=== PATIENT | male | born 1965 | race Caucasian/White ===

== ENCOUNTER 2019-10-18 14:35 | Outpatient (CLI) | payer OTHER, SELFPAY ==
[2019-10-18 14:49] LABS: Basophils Absolute Auto 0.09 K/mm3 (0.00-0.10); Basophils Percent Auto 0.8 % (0.0-1.0); Eosinophils Absolute Auto 0.61 K/mm3 (0.02-0.50); Eosinophils Percent Auto 5.3 % (1.0-6.0); Hematocrit 45.7 % (40.0-54.0); Hemoglobin 15.1 g/dL (14.0-18.0); Immature Granulocyte Absolute 0.05 K/mm3 (0.00-0.00); Immature Granulocyte Percent A 0.4 % (0.0-0.0); Lymphocytes Absolute Auto 3.61 K/mm3 (1.10-4.50); Lymphocytes Percent Auto 31.2 % (18.0-42.0); Mean Corpuscular Hemoglobin 29.1 pg (27.0-31.0); Mean Corpuscular Volume 88.1 fL (78.0-102.0); Mean Platelet Volume 9.2 fl (8.7-11.0); Monocytes Absolute Auto 0.72 K/mm3 (0.10-0.90); Monocytes Percent Auto 6.2 % (2.0-11.0); Neutrophils Absolute Auto 6.5 K/mm3 (1.7-7.2); Neutrophils Percent Auto 56.1 % (50.0-70.0); Platelet Count Result 315 K/mm3 (150-420); Red Blood Count 5.19 M/mm3 (4.70-6.10); Red Cell Distribution Width 12.6 % (11.6-14.4); White Blood Count 11.6 K/mm3 (4.8-10.8)
[2019-10-18 15:02] LABS: Hemoglobin A1C 8.2 % (<5.7)
[2019-10-18 15:25] LABS: Alanine Aminotransferase 20 U/L (16-63); Alkaline Phosphatase 73 U/L (46-116); Anion Gap 10 mmol/L (8-16); Aspartate Amino Transferase 13 U/L (15-37); Bilirubin,Total 0.6 mg/dL (0.00-1.00); Blood Urea Nitrogen 14 mg/dL (7-18); Calcium 9.5 mg/dL (8.5-10.1); Carbon Dioxide 26 mmol/L (21-32); Chloride 102 mmol/L (98-108); Cholesterol 128 mg/dL (0-200); Estimated Glomerular Filt Rate > 60; Glucose 153 mg/dL (70-99); HDL Direct 33 mg/dL (40-60); LDL Cholesterol Calculated 52 mg/dL (<130); Osmolality Calculated 289 mOsm/kg (285-295); Potassium 4.8 mmol/L (3.5-5.1); Sodium 138 mmol/L (136-145); Total Protein 7.2 g/dL (6.4-8.2); Triglycerides 213 mg/dL (0-150)
[2019-10-18 15:46] LABS: Thyroid Stimulating Hormone Reflex 2.17 u/IU/mL (0.36-3.74)
== END 2019-10-18 14:36 | disposition home or self-care (01) ==
LOC: CHSLAB 14:40
PROVIDERS: PCP Family Medicine; Visit Provider Family Medicine
DX: E11.9 Type 2 diabetes mellitus without complications (principal)
CPT/HCPCS: 36415; 80053; 80061; 83036; 84443; 85025

== ENCOUNTER 2019-12-07 06:49 | Outpatient (NON) | payer OTHER, SELFPAY ==
[2019-12-07 21:17] LABS: SARS-CoV-2 RNA PCR Positive
== END 2019-12-07 06:50 ==
PROVIDERS: PCP Family Medicine; Visit Provider Family Medicine
DX: U07.1 COVID-19 (principal)
CPT/HCPCS: 87635; C9803; U0003

== ENCOUNTER 2019-12-16 13:50 | Outpatient (CLI) | payer OTHER, SELFPAY ==
[2019-12-17 13:14] LABS: SARS-CoV-2 RNA PCR Positive
== END 2019-12-16 13:51 | disposition home or self-care (01) ==
LOC: CHSLAB 13:53
PROVIDERS: PCP Family Medicine; Visit Provider Family Medicine
DX: U07.1 COVID-19 (principal)
CPT/HCPCS: 87635; C9803; U0003

== ENCOUNTER 2019-12-30 09:07 | Outpatient (CLI) | payer OTHER, SELFPAY ==
[2019-12-31 14:10] LABS: SARS-CoV-2 RNA PCR Negative
== END 2019-12-30 09:08 | disposition home or self-care (01) ==
PROVIDERS: PCP Nurse Practitioner Family; Visit Provider Nurse Practitioner Family
DX: Z20.828 Contact with and (suspected) exposure to other viral communicable diseases (principal)
CPT/HCPCS: 87635; C9803; U0003

== ENCOUNTER 2020-07-23 13:51 | Outpatient (CLI) | payer OTHER, SELFPAY ==
[2020-07-23 14:10] LABS: Hematocrit 48.3 % (40.0-54.0); Hemoglobin 16.4 g/dL (14.0-18.0); Mean Corpuscular Hemoglobin 29.3 pg (27.0-31.0); Mean Corpuscular Volume 86.3 fL (78.0-102.0); Mean Platelet Volume 9.2 fl (8.7-11.0); Platelet Count Result 344 K/mm3 (150-420); Red Cell Distribution Width 12.7 % (11.6-14.4); White Blood Count 15.3 K/mm3 (4.8-10.8)
[2020-07-23 14:25] LABS: Hemoglobin A1C 8.8 % (<5.7)
[2020-07-23 15:10] LABS: Erythrocyte Sedimentation Rate 3 mm/hr (0-20)
[2020-07-23 15:17] LABS: Alanine Aminotransferase 23 U/L (16-63); Albumin Level 4.3 g/dL (3.4-5.0); Alkaline Phosphatase 80 U/L (46-116); Anion Gap 13 mmol/L (8-16); Aspartate Amino Transferase 10 U/L (15-37); Band Neutrophils Percent 0 % (0-6); Basophils Absolute Manual 0.15 K/mm3 (0-0.1); Basophils Percent Manual 1 % (0-1); Bilirubin,Total 0.8 mg/dL (0.00-1.00); Blood Urea Nitrogen 21 mg/dL (7-18); Calcium 9.9 mg/dL (8.5-10.1); Carbon Dioxide 23 mmol/L (21-32); Chloride 99 mmol/L (98-108); Cholesterol 133 mg/dL (0-200); Eosinophils Absolute Manual 0.91 K/mm3 (0.02-0.5); Eosinophils Percent Manual 6 % (1-6); Estimated Glomerular Filt Rate 51; Ferritin 333 ng/mL (26-388); Glucose 142 mg/dL (70-99); HDL Direct 29 mg/dL (40-60); Iron 57 ug/dL (65-175); LDL Cholesterol Calculated 60 mg/dL (<130); Lymphocytes Absolute Manual 4.74 K/mm3 (1.1-4.5); Lymphocytes Percent Manual 31 % (18-44); Monocytes Absolute Manual 1.22 K/mm3 (0.1-0.90); Monocytes Percent Manual 8 % (3-9); Neutrophils Absolute Manual 8.26 K/mm3 (1.3-6.7); Neutrophils Percent Manual 54 % (46-73); Osmolality Calculated 285 mOsm/kg (285-295); Percent Iron Saturation 18 % (12-57); Platelet Estimate Adequate (Adequate); Potassium 5.2 mmol/L (3.5-5.1); Sodium 135 mmol/L (136-145); Total Cells Counted 100; Total Protein 7.3 g/dL (6.4-8.2); Triglycerides 222 mg/dL (0-150); Vitamin B12 543 pg/mL (193-986)
[2020-07-23 15:18] LABS: CRP < 0.5 mg/dL (0.0-0.9)
[2020-07-30 12:36] LABS: Vitamin D 25 Hydroxy 9 ng/mL (30-100)
== END 2020-07-23 13:52 | disposition home or self-care (01) ==
LOC: CHSLAB 13:55
PROVIDERS: PCP Family Medicine; Visit Provider Family Medicine
DX: E11.9 Type 2 diabetes mellitus without complications (principal); R53.83 Other fatigue; E55.9 Vitamin D deficiency, unspecified
CPT/HCPCS: 36415; 80053; 80061; 82306; 82607; 82728; 82746; 83036; 83540; 83550; 84443; 85025; 85652; 86140

== ENCOUNTER 2020-08-20 14:18 | Outpatient (CLI) | payer OTHER, SELFPAY ==
--- NOTE | 2020-08-20 14:22 | ECG_ITS ---
Measurements Intervals [place] Rate: 124 P: 76 NH: 141 QRS: 77 QRSD: 91 T: 78 QT: 291 QTc: 419 Interpretive Statements SINUS TACHYCARDIA ABNORMAL ECG Electronically Signed On 08-20-2020 14:43:06 CDT by Bruno Joseph D.O.
== END 2020-08-20 14:19 | disposition home or self-care (01) ==
PROVIDERS: PCP Family Medicine; Visit Provider Family Medicine
DX: R07.9 Chest pain, unspecified (principal); R53.83 Other fatigue
CPT/HCPCS: 93005

== ENCOUNTER 2020-08-20 14:40 | Outpatient (RCR) | payer OTHER, SELFPAY ==
--- NOTE | 2020-08-20 15:54 | PTOPEVAL ---
Thank you for referring Bijan Ibrahim to [facility].? The patient is scheduled to be seen for therapy? ____x/week for ___ weeks. Please review, sign, date and return this plan of care LAVERNE. I agree with and certify that the following plan of care is medically necessary. Referring Physician Date Admitting Provider: Attending Provider: Renny Melissa MD Referring Provider: *PT Outpatient Evaluation Start: 08/20/20 14:49 Freq: Status: Active Protocol: Document 08/20/20 14:49 ACR (Rec: 08/20/20 15:53 ACR [email or web address]) Therapy Assessment Status Assessment Status Assessment Status Evaluation Evaluation Information Problem Diagnosis R hip pain Onset 08/05/20 Subjective Information Patient states that he has Query Text:As Reported By Patient/ been having pain in his hip Family for about 6 years because he started to become more sedentary. 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 The patient states that at times when he gets up, the femur feels that it is breaking. The patient states that walking and standing are the most difficult. Patient states that getting in and out of a chair and a car are a bit difficult . Patient states that is 2 packs of cigarettes a day and is sedentary throughout the day. Prior Level of Function Activity Level (Last 3 Months) Occupation unemployed Hand [employer]ance Right Activity of Daily Living Ability Independent Indoor/Home Mobility Independent Community Mobility Independent Stairs Ability Independent Functional Cognition (Planning, Shopping Independent , Taking Medications) Cooking Yes Cleaning Yes Laundry Yes Shopping Yes Driving Yes Pain Assessment Timing of Pain Assessment Timing of Pain Assessment Assessment Pain Scale Pain Scale Used Numeric (1 - 10) Self Report Pain Assessment Right Hip(s) Reported Pa
--- NOTE | 2020-08-20 16:40 | PTOPEVAL ---
Thank you for referring Bijan Ibrahim to [facility].? The patient is scheduled to be seen for therapy? ____x/week for ___ weeks. Please review, sign, date and return this plan of care LAVERNE. I agree with and certify that the following plan of care is medically necessary. Referring Physician Date Admitting Provider: Attending Provider: Renny Melissa MD Referring Provider: *PT Outpatient Evaluation Start: 08/20/20 14:49 Freq: Status: Active Protocol: Document 08/20/20 14:49 ACR (Rec: 08/20/20 15:53 ACR [email or web address]) Therapy Assessment Status Assessment Status Assessment Status Evaluation Evaluation Information Problem Diagnosis R hip pain Onset 08/05/20 Subjective Information Patient states that he has Query Text:As Reported By Patient/ been having pain in his hip Family for about 6 years because he started to become more sedentary. 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 The patient states that at times when he gets up, the femur feels that it is breaking. The patient states that walking and standing are the most difficult. Patient states that getting in and out of a chair and a car are a bit difficult . Patient states that is 2 packs of cigarettes a day and is sedentary throughout the day. Prior Level of Function Activity Level (Last 3 Months) Occupation unemployed Hand Dominance Right Activity of Daily Living Ability Independent Indoor/Home Mobility Independent Community Mobility Independent Stairs Ability Independent Functional Cognition (Planning, Shopping Independent , Taking Medications) Cooking Yes Cleaning Yes Laundry Yes Shopping Yes Driving Yes Pain Assessment Timing of Pain Assessment Timing of Pain Assessment Assessment Pain Scale Pain Scale Used Numeric (1 - 10) Self Report Pain Assessment Right Hip(s) Reported Pa
--- NOTE | 2020-10-15 15:01 | PTOPEVAL ---
Thank you for referring Bijan Ibrahim to [facility].? The patient is scheduled to be seen for therapy? ____x/week for ___ weeks. Please review, sign, date and return this plan of care LAVERNE. I agree with and certify that the following plan of care is medically necessary. Referring Physician Date Admitting Provider: Attending Provider: Renny Melissa MD Referring Provider: *PT Outpatient Evaluation Start: 08/20/20 14:49 Freq: Status: Active Protocol: Document 10/15/20 13:57 ACR (Rec: 10/15/20 15:00 ACR [email or web address]) Therapy Assessment Status Assessment Status Assessment Status Progress Evaluation Information Problem Diagnosis R hip pain Onset 08/05/20 Subjective Information Patient states since beginning Query Text:As Reported By Patient/ therapy he feels that it is Family really helping, but it is starting to bother him again. Patient states that getting out of a chair and getting out of his car are still difficult for him. Patient states walking and standing are also difficult. Pain Assessment Timing of Pain Assessment Timing of Pain Assessment Assessment Pain Scale Pain Scale Used Numeric (1 - 10) Self Report Pain Assessment Right Hip(s) Reported Pain Level 8 Lowest Pain Intensity 4 Greatest Pain Intensity 8 Pain Score Pain Score 8: Self Report Interventions Used Interventions Used By Clinicians Activity or ADL's,Exercise Lower Extremity Range of Motion Hip Range of Motion Right Hip Flexion Range of Motion - Active 121 Hip Abduction Range of Motion - Active 50 Lower Extremity Muscle Strength Testing Hip Strength Right Hip Flexion Strength 4+ Good + Hip Abduction Strength 3+ Fair + Left Hip Flexion Strength 4+ Good + Hip Abduction Strength 4 Good Muscle Length Testing Muscle Length Testing Left Hamstring Length 41 Query Text:(90 - 90 Position) Right Hamstring Length 41 Query Text:(90 - 90 Position) General Exercise General Exercises Exercise Description - Nustep level 5 x 10 minutes Query Text:Record Sets, Reps, - HS stretch x 3 minutes Resistance, and Position bilateral - piriformis stretch x 2 minutes bilateral - clamshells with blue loop x 25 B -sidelying hip abduction x 20 bilateral
--- NOTE | 2020-11-17 16:33 | PTOPEVAL ---
Thank you for referring Bijan Ibrahim to [facility].? The patient is scheduled to be seen for therapy? ____x/week for ___ weeks. Please review, sign, date and return this plan of care LAVERNE. I agree with and certify that the following plan of care is medically necessary. Referring Physician Date Admitting Provider: Attending Provider: Renny Melissa MD Referring Provider: *PT Outpatient Evaluation Start: 08/20/20 14:49 Freq: Status: Active Protocol: Document 11/17/20 15:07 ACR (Rec: 11/17/20 16:05 ACR [email or web address]) Therapy Assessment Status Assessment Status Assessment Status Evaluation Evaluation Information Problem Diagnosis R hip pain Onset 08/05/20 Subjective Information Patient reports that the hip Query Text:As Reported By Patient/ feels a little better, but he Family continues to have pain and soreness. He states that he continues to not do a whole lot and isn't sure why he feels like doing nothing. He has gone to talk to someone, but is not constant with it. Pain Assessment Timing of Pain Assessment Timing of Pain Assessment Assessment Pain Scale Pain Scale Used Numeric (1 - 10) Self Report Pain Assessment Right Hip(s) Reported Pain Level 4 Greatest Pain Intensity 6 Pain Score Pain Score 4: Self Report Additional Pain Score Comments highest pain for a short period of time Interventions Used Interventions Used By Clinicians Activity or ADL's,Exercise Lower Extremity Muscle Strength Testing Hip Strength Right Hip Flexion Strength 4 Good Hip Abduction Strength 4 Good Left Hip Flexion Strength 4 Good Hip Abduction Strength 4 Good Muscle Length Testing Muscle Length Testing Piriformis w/Hip Flexion >90 Degrees (R) Moderate Tightness,(L) Moderate Tightness Left Hamstring Length 35 Query Text:(90 - 90 Position) Right Hamstring Length 35 Query Text:(90 - 90 Position) General Exercise General Exercises Exercise Description - reeval x 10 minutes Query Text:Record Sets, Reps, - HS stretch x 10 minutes Resistance, and Position bilateral - piriformis stretch x 2 minutes bilateral - sidelying clamshells with blue loop x 25 B - reverse clamshells blue x 25 B - sidelying hip abd
== END 2020-11-17 17:00 | disposition still patient (30) ==
LOC: CHSPT 14:40
PROVIDERS: PCP Family Medicine; Visit Provider Family Medicine
DX: M25.551 Pain in right hip (principal)
CPT/HCPCS: 97014; 97110; 97112; 97161; 97530; G0283

== ENCOUNTER 2020-11-23 14:59 | Outpatient (RCR) | payer OTHER, SELFPAY ==
--- NOTE | 2020-12-15 15:56 | PTOPEVAL ---
Thank you for referring Bijan Ibrahim to [facility].? The patient is scheduled to be seen for therapy? ____x/week for ___ weeks. Please review, sign, date and return this plan of care LAVERNE. I agree with and certify that the following plan of care is medically necessary. Referring Physician Date Admitting Provider: Attending Provider: Renny Melissa MD Referring Provider: *PT Outpatient Evaluation Start: 12/15/20 15:09 Freq: Status: Active Protocol: Document 12/15/20 15:00 ACR (Rec: 12/15/20 15:55 ACR [email or web address]) Therapy Assessment Status Assessment Status Assessment Status Discharge Evaluation Information Problem Diagnosis R hip pain Onset 08/05/20 Subjective Information Patient states that he feels Query Text:As Reported By Patient/ like his hip is regressing Family because he is starting to have that pain again. He states that it feels like it needs to pop. Patient reports he is going to start looking for a job. Pain Assessment Timing of Pain Assessment Timing of Pain Assessment Pre-Treatment Pain Scale Pain Scale Used Numeric (1 - 10) Self Report Pain Assessment Right Leg(s) Reported Pain Level 2 Greatest Pain Intensity 6 Pain Score Pain Score 2: Self Report Interventions Used Interventions Used By Clinicians Activity or ADL's,Exercise Lower Extremity Muscle Strength Testing Hip Strength Right Hip Flexion Strength 4 Good Hip Abduction Strength 4 Good Left Hip Flexion Strength 4+ Good + Hip Abduction Strength 4 Good Muscle Length Testing Muscle Length Testing Piriformis w/Hip Flexion >90 Degrees (L) Mild Tightness,(R) Moderate Tightness Left Hamstring Length 35 Query Text:(90 - 90 Position) Right Hamstring Length 35 Query Text:(90 - 90 Position) General Exercise General Exercises Exercise Description - Nustep level 5 x 10 minutes Query Text:Record Sets, Reps, - heel/toe raises x 30 Resistance, and Position - hip extension x 30 B - hip abduction x 30 B - squats x 15 - step ups on 8 step x 15 leading with R - lateral step ups on 8 step x 15 B - gastroc incline board x 3 min - passive hamstring and piriformis stretching x 10
== END 2020-12-15 16:02 | disposition home or self-care (01) ==
LOC: CHSPT 14:59
PROVIDERS: PCP Family Medicine; Visit Provider Family Medicine
DX: M25.551 Pain in right hip (principal)
CPT/HCPCS: 97110; 97530

== ENCOUNTER 2021-01-25 13:57 | Outpatient (RCR) | payer OTHER, SELFPAY ==
--- NOTE | 2021-01-25 14:55 | PTOPEVAL ---
Thank you for referring Bijan Ibrahim to [facility].? The patient is scheduled to be seen for therapy? ____x/week for ___ weeks. Please review, sign, date and return this plan of care LAVERNE. I agree with and certify that the following plan of care is medically necessary. Referring Physician Date Admitting Provider: Attending Provider: Vanessa Aceves NP Referring Provider: *PT Outpatient Evaluation Start: 01/25/21 13:43 Freq: Status: Active Protocol: Document 01/25/21 13:43 ACR (Rec: 01/25/21 14:55 ACR [email or web address]) Therapy Assessment Status Assessment Status Assessment Status Evaluation Evaluation Information Problem Diagnosis R hip pain, parathesia of skin Onset 01/19/21 Subjective Information The patient reports that after Query Text:As Reported By Patient/ he was done with therapy on Family December 15 he is feeling a lot worse. He is becoming winded after showering and grooming. He also reports that he has some weakness and numbness in pinky. He also reports that when he stretches out his legs his legs start to get numb. He reports that stairs are difficult for him. He reports that he is to go back to work and is worried because he is unable to do more than 30 minutes of activity before he gets fatigued. 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 Prior Level of Function Activity Level (Last 3 Months) Occupation unemployed Hand Dominance Right Activity of Daily Living Ability Independent Indoor/Home Mobility Independent Community Mobility Independent Stairs Ability Independent Functional Cognition (Planning, Shopping Independent , Taking Medications) Cooking Yes Cleaning Yes Laundry Yes Shopping Yes Driving Yes Pain Assessment Timing of Pain Assessment Timing of Pain Assessment Assessment Pain Scale Pain Scale Used Numeric (1 - 10) Self Report Pain Assessment Right Hip(s) Reported Pain Level 5
--- NOTE | 2021-02-16 17:17 | PTOPEVAL ---
Thank you for referring Bijan Ibrahim to [facility].? The patient is scheduled to be seen for therapy? ____x/week for ___ weeks. Please review, sign, date and return this plan of care LAVERNE. I agree with and certify that the following plan of care is medically necessary. Referring Physician Date Admitting Provider: Attending Provider: Vanessa Aceves NP Referring Provider: *PT Outpatient Evaluation Start: 01/25/21 13:43 Freq: Status: Active Protocol: Document 02/16/21 14:59 ACR (Rec: 02/16/21 16:07 ACR [email or web address]) Therapy Assessment Status Assessment Status Assessment Status Evaluation Evaluation Information Problem Diagnosis R hip pain, parathesia of skin , R shoulder pain Onset 01/29/21 Subjective Information Patient states that he is Query Text:As Reported By Patient/ feeling sore, but in a good Family way. He presents to therapy with an order for his shoulder this visit. He states that his shoulder is bothering him especially when reaching above his head and behind his bed. He states that reaching behind him really bothering him as well. He states that regarding his hip he has a light tingling sensation in the L side of his back into his buttock. Pain Assessment Timing of Pain Assessment Timing of Pain Assessment Assessment Pain Scale Pain Scale Used Numeric (1 - 10) Self Report Pain Assessment Right Shoulder(s) Reported Pain Level 2 Greatest Pain Intensity 9 Right Hip(s) Reported Pain Level 4 Greatest Pain Intensity 4 Pain Score Pain Score 4,2: Self Report Interventions Used Interventions Used By Clinicians Activity or ADL's,Exercise Upper Extremity Range of Motion Scapular/ Shoulder Range of Motion Right Shoulder Flexion - Active 138 Shoulder Abduction - Active 162 Lower Extremity Muscle Strength Testing Hip Strength Right Hip Flexion Strength 4+ Good + Hip Abduction Strength 4 Good Left Hip Flexion Strength 4+ Good + Hip Abduction Strength 4 Good Knee Strength Right Knee Flexion Strength 4+ Good + Knee Extension Strength 4+ Good + Left Knee Flexion Strength 5 Normal Knee Extension Strength 5 Normal Upper Extremity Muscle Strength Testing General Upper Extremity Strength Gross Upper Extremity Strength Comments
--- NOTE | 2021-03-15 16:08 | PTOPEVAL ---
Thank you for referring Bijan Ibrahim to [facility][Note 2[facility]? The patient is scheduled to be seen for therapy? ____x/week for ___ weeks. Please review, sign, date and return this plan of care LAVERNE. I agree with and certify that the following plan of care is medically necessary. Referring Physician Date Admitting Provider: Attending Provider: Vanessa Aceves NP Referring Provider: *PT Outpatient Evaluation Start: 01/25/21 13:43 Freq: Status: Active Protocol: Document 03/15/21 15:05 ACR (Rec: 03/15/21 16:07 ACR [email or web address]) Therapy Assessment Status Assessment Status Assessment Status Progress Evaluation Information Problem Diagnosis R hip pain, parathesia of skin , R shoulder pain Onset 01/29/21 Subjective Information Patient states that his hip is Query Text:As Reported By Patient/ at the point where sometimes Family it hurts, but most times it does not. He states that his shoulder is the getting worse and feels it is more in the arm rather than the shoulder but it is not numbness and tingling. The patient would like to concentrate more on the arm than the hip now. Pain Assessment Timing of Pain Assessment Timing of Pain Assessment Assessment Pain Scale Pain Scale Used Numeric (1 - 10) Self Report Pain Assessment Right Shoulder(s) Reported Pain Level 0 Greatest Pain Intensity 10 Right Hip(s) Reported Pain Level 3 Greatest Pain Intensity 6 Pain Score Pain Score 0,3: Self Report Interventions Used Interventions Used By Clinicians Activity or ADL's,Exercise Upper Extremity Range of Motion Scapular/ Shoulder Range of Motion Right Shoulder Flexion - Active 145 Lower Extremity Muscle Strength Testing Hip Strength Right Hip Flexion Strength 4+ Good + Hip Abduction Strength 4 Good Left Hip Flexion Strength 4+ Good + Hip Abduction Strength 4 Good Knee Strength Right Knee Flexion Strength 5 Normal Knee Extension Strength 5 Normal Left Knee Flexion Strength 5 Normal Knee Extension Strength 5 Normal Upper Extremity Muscle Strength Testing Scapular/Shoulder Right Shoulder Flexion Strength 4- Good - Shoulder Abduction Strength 5 Normal Shoulder Medial Rotation Strength 5 Normal Shoulder Lateral Rotation Strength 4- Good - Left Shoulder Flexion Strength 5 Normal Shoulder Abduction Strength 5 Normal Shoulder Medial Rotation
--- NOTE | 2021-05-06 16:13 | PTOPEVAL ---
Thank you for referring Bijan Ibrahim to [facility].? The patient is scheduled to be seen for therapy? ____x/week for ___ weeks. Please review, sign, date and return this plan of care LAVERNE. I agree with and certify that the following plan of care is medically necessary. Referring Physician Date Admitting Provider: Attending Provider: Vanessa Aceves NP Referring Provider: *PT Outpatient Evaluation Start: 01/25/21 13:43 Freq: Status: Active Protocol: Document 05/06/21 14:50 ACR (Rec: 05/06/21 15:47 ACR [email or web address]) Therapy Assessment Status Assessment Status Assessment Status Discharge Evaluation Information Problem Diagnosis R hip pain, parathesia of the skin, R shoulder pain Onset 01/29/21 Subjective Information Patient reports that since Query Text:As Reported By Patient/ beginning therapy he is Family feeling a lot better, but his shoulder continues to have the sharp pains. He states that it is at the point where he can do most of his stuff at home. Pain Assessment Timing of Pain Assessment Timing of Pain Assessment Assessment Pain Scale Pain Scale Used Numeric (1 - 10) Self Report Pain Assessment Right Shoulder(s) Reported Pain Level 1 Greatest Pain Intensity 8 Pain Score Pain Score 1: Self Report Interventions Used Interventions Used By Clinicians Activity or ADL's,Exercise Upper Extremity Range of Motion Scapular/ Shoulder Range of Motion Right Shoulder Flexion - Active 161 Upper Extremity Muscle Strength Testing Scapular/Shoulder Right Shoulder Flexion Strength 4+ Good + Shoulder Abduction Strength 5 Normal Shoulder Medial Rotation Strength 5 Normal Shoulder Lateral Rotation Strength 4+ Good + Left Shoulder Flexion Strength 5 Normal Shoulder Abduction Strength 5 Normal Shoulder Medial Rotation Strength 5 Normal Shoulder Lateral Rotation Strength 5 Normal Special Tests-Upper Extremity Shoulder Special Tests Empty Can (supraspinatus) Test Negative Left,Negative Right Painful Arc Negative Left,Negative Right Speed's Test Negative Left,Negative Right Hawkin's Dave Test Negative Left,Positive Right Infraspinatus Test Negative Left,Negative Right General Exercise General Exercises Exercise Description TherEx Query Text:Record Sets, Reps, - pulleys x 5 minutes Resistance, and Position - B shoulder extension with scapular depression light blue x 25 - B sahara
== END 2021-05-06 23:59 | disposition home or self-care (01) ==
LOC: CHSPT 13:57
PROVIDERS: PCP Family Medicine; Visit Provider Nurse Practitioner Family
DX: M25.551 Pain in right hip (principal); R20.2 Paresthesia of skin; M25.511 Pain in right shoulder
CPT/HCPCS: 97110; 97140; 97161; 97530

== ENCOUNTER 2022-01-04 14:01 | Outpatient (CLI) | payer BC, SELFPAY ==
[2022-01-04 14:51] LABS: Influenza A QL RT-PCR Negative (Negative); Influenza B QL RT-PCR Negative (Negative); SARS-CoV-2 RNA PCR Negative (Negative)
== END 2022-01-04 14:02 | disposition home or self-care (01) ==
LOC: CHSLAB 14:02
PROVIDERS: PCP Family Medicine; Visit Provider Family Medicine
DX: J06.9 Acute upper respiratory infection, unspecified (principal); Z20.822 Contact with and (suspected) exposure to COVID-19
CPT/HCPCS: 87502; U0003; U0005

== ENCOUNTER 2022-09-27 11:49 | Outpatient (CLI) | payer MEDICAID, SELFPAY ==
[2022-09-27 12:01] LABS: Basophils Absolute Auto 0.05 K/mm3 (0.00-0.10); Basophils Percent Auto 0.4 % (0.0-1.0); Eosinophils Absolute Auto 0.48 K/mm3 (0.02-0.50); Eosinophils Percent Auto 3.9 % (1.0-6.0); Hematocrit 42.6 % (40.0-54.0); Hemoglobin 14.5 g/dL (14.0-18.0); Immature Granulocyte Absolute 0.05 K/mm3 (0.00-0.00); Immature Granulocyte Percent A 0.4 % (0.0-0.0); Lymphocytes Absolute Auto 2.76 K/mm3 (1.10-4.50); Lymphocytes Percent Auto 22.5 % (18.0-42.0); Mean Corpuscular Hemoglobin 30.4 pg (27.0-31.0); Mean Corpuscular Volume 89.3 fL (78.0-102.0); Mean Platelet Volume 9.3 fl (8.7-11.0); Monocytes Absolute Auto 0.85 K/mm3 (0.10-0.90); Monocytes Percent Auto 6.9 % (2.0-11.0); Neutrophils Absolute Auto 8.1 K/mm3 (1.7-7.2); Neutrophils Percent Auto 65.9 % (50.0-70.0); Platelet Count Result 263 K/mm3 (150-420); Red Blood Count 4.77 M/mm3 (4.70-6.10); Red Cell Distribution Width 12.6 % (11.6-14.4); White Blood Count 12.3 K/mm3 (4.8-10.8)
[2022-09-27 12:56] LABS: Alanine Aminotransferase 23 U/L (16-63); Albumin Level 3.9 g/dL (3.4-5.0); Alkaline Phosphatase 86 U/L (46-116); Anion Gap 9 mmol/L (8-16); Bilirubin,Total 0.7 mg/dL (0.00-1.00); Blood Urea Nitrogen 19 mg/dL (7-18); Carbon Dioxide 28 mmol/L (21-32); Chloride 104 mmol/L (98-108); Estimated Glomerular Filt Rate > 60; Folic Acid 7.7 ng/mL (8.6->20); Glucose 241 mg/dL (70-99); Osmolality Calculated 302 mOsm/kg (285-295); Potassium 4.2 mmol/L (3.5-5.1); Sodium 141 mmol/L (136-145); Total Protein 6.7 g/dL (6.4-8.2); Vitamin B12 535 pg/mL (193-986)
[2022-09-27 12:58] LABS: Thyroid Stimulating Hormone Reflex 1.61 u/IU/mL (0.36-3.74)
[2022-09-27 13:07] LABS: Aspartate Amino Transferase 12 U/L (15-37)
== END 2022-09-27 11:50 | disposition home or self-care (01) ==
LOC: CHSLAB 11:50
PROVIDERS: PCP Family Medicine; Visit Provider Family Medicine
DX: E11.9 Type 2 diabetes mellitus without complications (principal); E53.8 Deficiency of other specified B group vitamins; G56.20 Lesion of ulnar nerve, unspecified upper limb
CPT/HCPCS: 36415; 80053; 82607; 82746; 83036; 84443; 85025

== ENCOUNTER 2023-05-29 10:06 | Emergency (ER) | payer OTHER, SELFPAY ==
[2023-05-29 10:13] VITALS: O2SAT 98
[2023-05-29 10:14] VITALS: BP 119/72; PULSE 112; RESP 19; TEMP 36.2; O2SAT 98
--- NOTE | 2023-05-29 10:24 | ED.GENADULT ---
HPI - General Adult General Chief complaint: Upper Respiratory Infection Stated complaint: URI/congestion History of Present Illness HPI narrative: this is a 57-year-old male presenting ED with chief complaint of cold symptoms. Patient has been having symptoms for 3-4 days. These include body aches and nasal congestion. He denies fevers, nausea vomiting diarrhea chest pain difficulty breathing abdominal pain. Patient has a history of chronic allergies and sinus congestion. Related Data Home Medications Medication Instructions Recorded Confirmed garlic 1,000 mg capsule 1,000 mg PO DAILY 03/21/19 05/29/23 amitriptyline 25 mg tablet 25 mg PO HS 05/29/23 05/29/23 atorvastatin 40 mg tablet 40 mg PO DAILY 05/29/23 05/29/23 metformin 1,000 mg tablet 1,000 mg PO BID 05/29/23 05/29/23 Allergies Allergy/AdvReac Type Severity Reaction Status Date / Time tetracycline Allergy Intermediate Unknown Verified 05/29/23 10:17 [facility] Past Medical History Medical History Bladder cancer Chest pain Erectile disorder, acquired, generalized, moderate Fatigue Hyperlipidemia Nicotine addiction Nicotine dependence Right shoulder pain Sleep apnea Tinea versicolor Type 2 diabetes mellitus Vitamin D deficiency, unspecified Family History Family History Mother Family history of Alzheimer's disease Social History Social History Smoking packs per day: 1 Smoking cigarettes per day: 20.0 Smoking status: Current every day smoker (A pack a day ) Alcohol intake: never Substance use: never Substance use type: does not use Lack of Transportation: No Lack of Food: Never True Current Housing: I Have Housing Concerned About Future Housing: No Difficulty Paying Gas/Electric Bills: No Difficulty Paying for Meds: No Currently Unemployed: Decline to Answer Education: Decline to Answer Difficulty w/ Childcare or Family Care: No Living arrangements: alone Occupation/Education: unemployed Exam Narrative: APPEARANCE: No apparent distress. Head: TMs showed serous effusion without erythema or bulging. EYES: EOMI, NOSE: Atraumatic NECK: Trachea midline RESPIRATORY: No increased rate of breathing, CTAB CARDIOVASCULAR: RRR, ABDOMINAL: Non-distended MUSCULOSKELETAl: No obvious deformities NEURO: Alert. Moving 4/4 extremities SKIN:: Warm, dry. Normal color PSYCHIATRIC: Normal affect Course Vital Signs Vital signs: Vital Signs Pulse Oximetry 98 05/29/23 10:13 Oxygen Delivery Room Air 05/29/23 10:13 Temperature 97.1 F L 05/29/23 10:14 Pulse Rate 112 H 05/29/23 10:14 Respiratory Rate 19 05/29/23 10:14 Blood Pressure 119/72 05/29/23 10:14 Pulse Oximetry 98 05/29/23 10:14 Oxygen Delivery Autopap 05/29/23 10:14 Medical Decision Making MDM Narrative Medical decision making narrative: -Course: Fifty year 7-year-old male with chronic allergic rhinitis presenting for 3 days of flu-like symptoms. Swabs negative. Patient given Motrin Tylenol and discharged with primary care follow-up. Patient was slightly tachycardic upon arrival although review of the EMR shows that he is always tachycardic. Patient confirmed that his heart rate is always a little bit high. Otherwise he is well appearing and is comfortable being discharged home this time -DDX includes but is not limited to: COVID/flu/ viral syndrome, sinusitis allergic sinusitis -Co-morbidities complicating care: chronic allergic sinusitis -Social determinants of health: unemployed, heavy tobacco use -External Chart Review: review of ENT note for chronic sinusitis -Independent interpretation of studies: swabs negative -Interventions: Motrin, Tylenol -Shared decision making / Disposition: discharged -RX Motrin, Tylenol, Sudafed Vital Sig
[2023-05-29] MEDS: ACETAMINOPHEN 500 MG TABLET 1000 MG PO (10:35)
[2023-05-29] MEDS: IBUPROFEN 400 MG TABLET 800 MG PO (10:36)
[2023-05-29 10:40] LABS: Strep Group A RT-PCR NOT DETECTED (Negative)
[2023-05-29 10:53] LABS: Influenza A QL RT-PCR Negative (Negative); Influenza B QL RT-PCR Negative (Negative); RSV RNA, RT-PCR Negative (Negative); SARS-CoV-2 RNA PCR Negative (Negative)
[2023-05-29 10:58] VITALS: BP 124/76; PULSE 102; RESP 19; TEMP 36.7; O2SAT 99
== END 2023-05-29 11:06 | disposition home or self-care (01) ==
PROVIDERS: Emergency Provider Emergency Medicine; PCP Family Medicine
DX: B34.9 Viral infection, unspecified (principal); J32.9 Chronic sinusitis, unspecified; E78.5 Hyperlipidemia, unspecified; E11.9 Type 2 diabetes mellitus without complications; E55.9 Vitamin D deficiency, unspecified; G47.30 Sleep apnea, unspecified; Z85.51 Personal history of malignant neoplasm of bladder; F17.200 Nicotine dependence, unspecified, uncomplicated; Z79.84 Long term (current) use of oral hypoglycemic drugs; Z20.822 Contact with and (suspected) exposure to COVID-19
CPT/HCPCS: 87637; 87651; 99283; A9270

== ENCOUNTER 2023-10-16 12:32 | Outpatient (CLI) | payer OTHER, SELFPAY ==
[2023-10-16 12:48] LABS: Basophils Absolute Auto 0.05 K/mm3 (0.00-0.10); Basophils Percent Auto 0.5 % (0.0-1.0); Eosinophils Absolute Auto 0.47 K/mm3 (0.02-0.50); Eosinophils Percent Auto 4.2 % (1.0-6.0); Hematocrit 47.2 % (40.0-54.0); Immature Granulocyte Absolute 0.03 K/mm3 (0.00-0.00); Immature Granulocyte Percent A 0.3 % (0.0-0.0); Lymphocytes Absolute Auto 3.35 K/mm3 (1.10-4.50); Lymphocytes Percent Auto 30.2 % (18.0-42.0); Mean Corpuscular HGB Conc 33.9 g/dL (32-36); Mean Corpuscular Hemoglobin 29.1 pg (27.0-31.0); Mean Platelet Volume 9.1 fl (8.7-11.0); Monocytes Percent Auto 6.3 % (2.0-11.0); Neutrophils Absolute Auto 6.49 K/mm3 (1.70-7.20); Neutrophils Percent Auto 58.5 % (50.0-70.0); Platelet Count Result 264 K/mm3 (150-420); Red Blood Count 5.49 M/mm3 (4.70-6.10); Red Cell Distribution Width 12.6 % (11.6-14.4); White Blood Count 11.1 K/mm3 (4.8-10.8)
[2023-10-16 13:14] LABS: Creatinine Urine 62.94 mg/dL (40-278)
[2023-10-16 13:19] LABS: MALB Creatinine Ratio 342.2 mg/g (0-30); Microalbumin Urine Random 215.4 mg/L
[2023-10-16 13:52] LABS: Alanine Aminotransferase 17 U/L (16-63); Albumin Level 3.8 g/dL (3.4-5.0); Alkaline Phosphatase 106 U/L (46-116); Anion Gap 11 mmol/L (4-12); Aspartate Amino Transferase < 10 U/L (15-37); Bilirubin,Total 0.7 mg/dL (0.00-1.00); Blood Urea Nitrogen 18 mg/dL (7-18); Calcium 9.1 mg/dL (8.5-10.1); Carbon Dioxide 27 mmol/L (21-32); Chloride 101 mmol/L (98-108); Cholesterol 148 mg/dL (0-200); Estimated Glomerular Filt Rate > 60; Glucose 395 mg/dL (70-99); HDL Direct 35 mg/dL (40-60); LDL Cholesterol Calculated 76 mg/dL (<130); Osmolality Calculated 305 mOsm/kg (285-295); Potassium 4.4 mmol/L (3.5-5.1); Sodium 139 mmol/L (136-145); Triglycerides 184 mg/dL (0-150)
[2023-10-16 13:53] LABS: Thyroid Stimulating Hormone Reflex 2.38 u/IU/mL (0.36-3.74)
== END 2023-10-16 12:33 | disposition home or self-care (01) ==
LOC: CHSLAB 12:34
PROVIDERS: PCP Nurse Practitioner Family; Visit Provider Nurse Practitioner Family
DX: Z00.00 Encounter for general adult medical examination without abnormal findings (principal); E11.9 Type 2 diabetes mellitus without complications
CPT/HCPCS: 36415; 80053; 80061; 82043; 83036; 84443; 85025

== ENCOUNTER 2023-10-19 16:08 | Outpatient (RCR) | payer OTHER, SELFPAY ==
--- NOTE | 2023-10-19 17:10 | OPREHPOC ---
Outpatient Therapy Plan of Care This is a Multidisciplinary Plan of Care that may contain components documented by all disciplines (PT, OT, and ST.) PT Problem 1 PT Problem #1 Knowledge Deficit PT Goal 1 Goal 1. independent and compliant Target Visit 6 PT Problem 2 PT Problem #2 Impaired Strength PT Goal 1 Goal 1. improve bilateral shoulder strength to 4+/5 or better overall 2. 5/5 bilateral elbow strength 3. 4+/5 or better bilateral hip strength 4. 5/5 bilateral knee strength 5. 5/5 bilateral ankle DF Target Visit 12 PT Problem 3 PT Problem #3 Impaired Functional Mobil PT Goal 1 Goal 1. tinetti to display low fall risk 2. TUG to be completed in 8 seconds or less 3. 5x sit to stand to be complete in 10 seconds or less with minimal UE assist or less 4. patient to complete 1400ft ambulation in 6 minute walk test with 5/10 or less reported fatigue level 5. patient to begin 3x weekly exercise program outside of therapy Target Visit 12
--- NOTE | 2023-10-19 17:11 | PTOPEVAL1 ---
Assessment and note entered by JT File, PT Evaluation Information Assessment Status Evaluation ICD-10 Condition Codes (PT) Weakness R53.1 Onset 10/13/23 Subjective Information patient reports he has been inactive at home. he reports he does smoke, has been sitting on his couch, and not exercising at home other than working. he reports he feels he has gotten weak and is worried about his strength in the legs. 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 he reports he gets pins and needles in the UE's and LE's and numbness in the legs from the knees down. he reports he has his weakness is in both his bilateral hands and legs. Reported Pain Level Pain Score 4: Self Report Assessment PT Clinical Summary mr. james is a 57 yo man who presents to skilled PT services for evaluation and treatment of weakness and neuropathy. he presents today with generalized weakness in the bilateral UE's and LE' s, but both noting more proximal weakness. he displays also decreased balance and endurance today. he would benefit from continued skilled PT to address his objective/functional deficits to improve his functional activity performance and quality of life. Plan of Care Interventions Gait Training,Neuro Re-education,Patient/Caregiver Educati,Therapeutic Activities,Therapeutic Exercise PT Services Indicated Yes Treatment Frequency and 3x weekly for 12 visits Duration These treatments will address the objective and functional deficits as defined above. The patient will be advanced safely and appropriately in order for the patient to progress towards his/her prior level of function. Additional exercises will be introduced and as well as a comprehensive home exercise program upon discharge, if needed, ?to ensure carryover of functional gains achieved in the clinic. This treatment plan has been reviewed and agreement upon by the patient.
--- NOTE | 2023-11-03 13:10 | PCPTNOTE ---
Cancelled session. Reports he is unable to make it today and will be here Monday.
--- NOTE | 2023-11-15 12:12 | PCPTNOTE ---
Patient called & cancelled scheduled appointment this date due to unable to make it in. -Sally Garcia, PT
--- NOTE | 2023-11-20 11:07 | PCPTNOTE ---
Pt. contacted the clinic stating that he had a terrible weekend and would like to cancel today. Darrell Wiley, MPT
--- NOTE | 2023-11-22 14:46 | OPREHPOC ---
Outpatient Therapy Plan of Care This is a Multidisciplinary Plan of Care that may contain components documented by all disciplines (PT, OT, and ST.) PT Problem 1 PT Problem #1 Knowledge Deficit PT Goal 1 Goal / Goal Update 1. independent and compliant Target Visit 6 Progress Met PT Problem 2 PT Problem #2 Impaired Strength PT Goal 1 Goal / Goal Update 1. improve bilateral shoulder strength to 4+/5 or better overall 2. 5/5 bilateral elbow strength 3. 4+/5 or better bilateral hip strength 4. 5/5 bilateral knee strength 5. 5/5 bilateral ankle DF Target Visit 12 PT Problem 3 PT Problem #3 Impaired Functional Mobil PT Goal 1 Goal / Goal Update 1. tinetti to display low fall risk 2. TUG to be completed in 8 seconds or less. not met 3. 5x sit to stand to be complete in 10 seconds or less with minimal UE assist or less. not met 4. patient to complete 1400ft ambulation in 6 minute walk test with 5/10 or less reported fatigue level. not met 5. patient to begin 3x weekly exercise program outside of therapy. not met Target Visit 12 Progress Not Met
--- NOTE | 2023-11-22 14:46 | PTOPPROGNS ---
Assessment and note entered by JT File, PT Evaluation Information Assessment Status Progress ICD-10 Condition Codes (PT) Weakness R53.1 Onset 10/13/23 Subjective Information patient reports he was out last week due to being sick and fatigued. he reports he has had a hard time recovering from feeling under the weather and weak last week. he reports he is still worn out and fatigued today. he reports last week when he was sick, he did not get up and exercise or perform his HEP. Assessment PT Clinical Summary mr. james presents to skilled PT for his 10th skilled PT visit. today he returns after a little over a week away due to illness. he returns with a regression in performance and requiring increased rest with activities. he was not active at home during his week away from skilled PT. he would do well to continue skilled PT with focus on progression of functional activity performance and objective measures to achieve goals. he will also need instruction on a 3-4x weekly exercise program to continue with his training and exercise conditioning independent after therapy is done. Plan of Care Interventions Gait Training,Neuro Re-education,Patient/Caregiver Educati,Therapeutic Activities,Therapeutic Exercise PT Services Indicated Yes Treatment Frequency and continue skilled PT per initial POC Duration These treatments will address the objective and functional deficits as defined above. The patient will be advanced safely and appropriately in order for the patient to progress towards his/her prior level of function. Additional exercises will be introduced and as well as a comprehensive home exercise program upon discharge, if needed, ?to ensure carryover of functional gains achieved in the clinic. This treatment plan has been reviewed and agreement upon by the patient.
--- NOTE | 2023-11-27 10:00 | PCPTNOTE ---
Pt. called to re-schedule his appointment on this date.
--- NOTE | 2023-12-07 14:36 | PTOPDC ---
Assessment and note entered by JT File, PT Evaluation Information Assessment Status Discharge ICD-10 Condition Codes (PT) Weakness R53.1 Onset 10/13/23 Subjective Information patient reports he has been away from PT again lately due to illness. he reports he has not been compliant with his HEP recently at home. he reports knowing he needs to become more consistent with home exercise. Reported Pain Level Pain Score 6: Self Report Assessment PT Clinical Summary mr. james presents to skilled PT for his 12th skilled PT visit. he presents today feeling still a bit under the weather. he has declined in his initial compliance with attendance and performance of HEP. he has attended 60% of scheduled visits this round of therapy. he has made progress in LE strength, but continues to lack ambulation, endurance, balance goal achievement. PT spoke with patient today about plan to DC today and become more consistent prior to returning to PT for any needed tune ups. patient in agreement with this plan. Plan of Care PT Services Indicated Yes
--- NOTE | 2023-12-07 14:36 | OPREHPOC ---
Outpatient Therapy Plan of Care This is a Multidisciplinary Plan of Care that may contain components documented by all disciplines (PT, OT, and ST.) PT Problem 1 PT Problem #1 Knowledge Deficit PT Goal 1 Goal / Goal Update 1. independent and compliant Target Visit 6 Progress Met PT Problem 2 PT Problem #2 Impaired Strength PT Goal 1 Goal / Goal Update 1. improve bilateral shoulder strength to 4+/5 or better overall 2. 5/5 bilateral elbow strength 3. 4+/5 or better bilateral hip strength. met 4. 5/5 bilateral knee strength. met 5. 5/5 bilateral ankle DF. not met Target Visit 12 Progress Partially Met PT Problem 3 PT Problem #3 Impaired Functional Mobil PT Goal 1 Goal / Goal Update 1. tinetti to display low fall risk. not met 2. TUG to be completed in 8 seconds or less. not met 3. 5x sit to stand to be complete in 10 seconds or less with minimal UE assist or less. not met 4. patient to complete 1400ft ambulation in 6 minute walk test with 5/10 or less reported fatigue level. not met 5. patient to begin 3x weekly exercise program outside of therapy. not met Target Visit 12 Progress Not Met
== END 2023-12-07 15:02 | disposition home or self-care (01) ==
LOC: CHSPT 16:08
PROVIDERS: Visit Provider Nurse Practitioner Family
DX: R53.1 Weakness (principal); E11.40 Type 2 diabetes mellitus with diabetic neuropathy, unspecified
CPT/HCPCS: 97110; 97112; 97161; 97530

== ENCOUNTER 2023-12-08 16:34 | Outpatient (NON) | payer OTHER, SELFPAY ==
[2023-12-08 16:59] LABS: Add Urine Microscopic? YES; Appearance Urine Clear (Clear); Bilirubin Urine Negative (Negative); Blood Urine Negative (Negative); Color Urine Light Yellow (Yellow); Glucose Urine UA 3+ (Negative); Ketones Urine Negative (Negative); Leukocyte Esterase Ur Negative LEU/UL (Negative); Nitrate Urine Negative (Negative); Protein Urine Trace (Negative)
[2023-12-08 17:04] LABS: Bacteria Urine Trace /hpf; RBC Urine None seen /hpf (0-2); Squamous Epithelial Cell Urine Rare /hpf (Few); WBC Urine None seen /hpf (0-3)
== END 2023-12-08 16:35 | disposition home or self-care (01) ==
LOC: CHSLAB 16:35
PROVIDERS: Visit Provider Nurse Practitioner Family
DX: R33.9 Retention of urine, unspecified (principal)
CPT/HCPCS: 81001

== ENCOUNTER 2024-01-10 14:51 | Outpatient (CLI) | payer OTHER, SELFPAY ==
--- NOTE | ~2024-01-10 | US_ITS ---
EXAM: RENAL ULTRASOUND HISTORY: E11.29 - Type 2 diabetes mellitus with other diabetic kid... COMPARISON: None FINDINGS: RIGHT KIDNEY: 10.0 x 4.2 x 4.0 cm. The parenchyma of the right kidney is increased in echogenicity. Mild right-sided hydronephrosis is present. Mild cortical thinning A single, well-circumscribed, rounded, anechoic, avascular focus is detected within the lower pole of the left kidney. This focus measures 3.2 x 1.9 x 2.9 cm and is consistent with a simple cyst for whi ch no further follow-up is needed Within the interpolar region of the right kidney is a nonobstructing calculus measuring 3.6 mm. LEFT KIDNEY: 12.4 x 4.9 x 7.4 cm No hydronephrosis or renal calculi. The parenchyma of the left kidney is increased in echogenicity. A single rounded avascular anechoic focus is present within the upper pole of the left kidney measuri ng 12 x 6.5 x 7.6 mm, consistent with a simple cyst for which no further follow-up is needed. BLADDER: Decompressed, limiting its evaluation. IMPRESSION: Simple cysts bilaterally. Findings suggesting medical renal disease. Size asymmetry between the bilateral kidneys, with the left kidney markedly larger than the right. Nonobstructing calculus within the right kidney. Mild hydronephrosis within the right kidney. Reviewed, dictated and finalized at location A. RTISING DESIGNER IMPRESSION: Simple cysts bilaterally. Findings suggesting medical renal disease. Size asymmetry between the bilateral kidneys, with the left kidney markedly lar joan than the right. Nonobstructing calculus within the right kidney. Mild hydronephrosis within the right kidney.
--- NOTE | ~2024-01-10 | CT_ITS ---
CT Scan of the Chest without Contrast: Clinical Indication: Lung cancer screening, nicotine dependence Technique: Contiguous sections were acquired throughout the chest without intravenous contrast. Dose reduction technique was used on this scan by utilizing automated exposure control and iterative recon struction technique. The dose-length product (DLP) was 99.17 mGy-cm. Findings: There is no evidence of any significant mediastinal, hilar or axillary lymphadenopathy. The mediastin al soft tissues appear normal. There is no evidence of pleural pleural effusion. Minimal pericardial fluid present. The lungs are clear. No pulmonary nodules or infiltrates are noted. Images through the upper abdomen reveal no abnormalities. Impression: Lung RADS 1: Negative. 12 month follow-up screening CT advised. Reviewed, dictated and finalized at location . RUMENTATION AND CONTROLS TECHNICIAN Impression: Lung RADS 1: Negative. 12 month follow-up screening CT advised.
[2024-01-10 15:28] LABS: Creatinine Urine 212.26 mg/dL (40-278); Ur Ttl Prot Creatinine Ratio 0.53 mg/mg (0-0.20)
[2024-01-10 15:50] LABS: Albumin Level 3.8 g/dL (3.4-5.0); Anion Gap 10 mmol/L (4-12); Blood Urea Nitrogen 19 mg/dL (7-18); Calcium 9.5 mg/dL (8.5-10.1); Carbon Dioxide 27 mmol/L (21-32); Chloride 104 mmol/L (98-108); Estimated Glomerular Filt Rate 53; Glucose 267 mg/dL (70-99); Osmolality Calculated 303 mOsm/kg (285-295); Phosphorus 3.3 mg/dL (2.6-4.7); Potassium 4.8 mmol/L (3.5-5.1); Sodium 141 mmol/L (136-145)
[2024-01-11 08:13] LABS: Protein, Total 6.8 g/dL (6.1-8.1)
[2024-01-11 08:54] LABS: Creatinine, Random Urine 192 mg/dL (20-320); Total Prot/Creat ratio mg/mg 0.536 (0.025-0.148); Total Protein/Creatinine Ratio 536 mg/g creat (25-148)
[2024-01-12 12:32] LABS: Complement C3 144 mg/dL (82-185)
[2024-01-13 15:33] LABS: ANCA Screen NEGATIVE (NEGATIVE)
[2024-01-16 15:13] LABS: Albumin 4.1 g/dL (3.8-4.8); Alpha 1 Globulin 0.3 g/dL (0.2-0.3); Alpha 2 Globulin 0.8 g/dL (0.5-0.9); Beta 1 Globulin 0.4 g/dL (0.4-0.6); Gamma Globulin 0.8 g/dL (0.8-1.7)
== END 2024-01-10 14:52 | disposition home or self-care (01) ==
LOC: CHSIMG 14:52
PROVIDERS: PCP Nurse Practitioner Family; Visit Provider Internal Medicine Nephrology
DX: R80.9 Proteinuria, unspecified (principal); E11.29 Type 2 diabetes mellitus with other diabetic kidney complication; Z12.2 Encounter for screening for malignant neoplasm of respiratory organs; Z87.891 Personal history of nicotine dependence
CPT/HCPCS: 36415; 71271; 76775; 80069; 82570; 83520; 84155; 84156; 84165; 84166; 86036; 86038; 86039; 86160; 86225

== ENCOUNTER 2024-03-08 12:32 | Outpatient (CLI) | payer OTHER, SELFPAY ==
[2024-03-08 12:50] LABS: Creatinine Urine 106.05 mg/dL (40-278); Total Protein Urine Random 94.6 mg/dL (0.0-11.9); Ur Ttl Prot Creatinine Ratio 0.89 mg/mg (0-0.20)
[2024-03-08 13:28] LABS: Albumin Level 3.8 g/dL (3.4-5.0); Anion Gap 8 mmol/L (4-12); Blood Urea Nitrogen 18 mg/dL (7-18); Calcium 9.4 mg/dL (8.5-10.1); Carbon Dioxide 29 mmol/L (21-32); Chloride 104 mmol/L (98-108); Estimated Glomerular Filt Rate > 60; Glucose 294 mg/dL (70-99); Osmolality Calculated 304 mOsm/kg (285-295); Phosphorus 3.3 mg/dL (2.6-4.7); Potassium 4.4 mmol/L (3.5-5.1); Sodium 141 mmol/L (136-145)
== END 2024-03-08 12:33 | disposition home or self-care (01) ==
LOC: CHSLAB 12:33
PROVIDERS: PCP Family Medicine; Visit Provider Internal Medicine Nephrology
DX: E11.29 Type 2 diabetes mellitus with other diabetic kidney complication (principal); R80.9 Proteinuria, unspecified
CPT/HCPCS: 36415; 80069; 82570; 84156

== ENCOUNTER 2024-05-23 14:00 | Outpatient (RCR) | payer OTHER, SELFPAY ==
--- NOTE | 2024-05-09 14:13 | OPREHPOC ---
Outpatient Therapy Plan of Care This is a Multidisciplinary Plan of Care that may contain components documented by all disciplines (PT, OT, and ST.) PT Problem 1 PT Problem #1 Knowledge Deficit PT Goal 1 Goal / Goal Update [place] with HEP Target Visit 4 PT Problem 2 PT Problem #2 Impaired Strength PT Goal 1 Goal / Goal Update 1. Improve [place] hip flexion strength to 4+/5 to improve foot clearance 2. Improve [place] hip abduction to 4+/5 to improve lateral stability with ADLs Target Visit 8 PT Goal 2 Goal / Goal Update 1. Improve [place] shoulder flexion to 4+/5 2. Improve [place] shoulder external rotation to 4+/5 Target Visit 8 PT Problem 3 PT Problem #3 Impaired Endurance PT Goal 1 Goal / Goal Update 1. Improve 6 minute walk test to 1000 feet without rest breaks to improve walk speed and reduce fall risk 2. Improve Tinetti score by 4 points Target Visit 8
--- NOTE | 2024-05-09 14:13 | PTOPEVAL1 ---
Assessment and note entered by Jaylan Zheng, PT Evaluation Information Assessment Status Evaluation ICD-10 Condition Codes (PT) Weakness R53.1 Onset Chronic Subjective Information Reports that he has noted progress neuropathy over the past couple of years he has not been nearly as active as he should. Feels that he has poorly managed both his activity and diet. He is a smoker . Overall feels that her has lost a lot of strength and endurance to gain and wants to increase his activity and blood flow. He would like to increase his activity and be guided in how to do it. He has done therapy in the past and wants to pick it back up to get motivated. Feels he has both upper and lower body weakness that he wants to work on. Reports numbness for the knees down. Reported Pain Level Pain Score 4: Self Report Assessment PT Clinical Summary Patient presents with significant weakness of yud[place] UE and LE with deconditioning and balance deficits . Will benefit form skilled care at this time to improve both strength and stabilization with emphasis on functional conditioning to improve stability and ADL performance. We had a long discussion about autonomy and self motivation and possible effects of depression decreasing his activity. Plan of Care Interventions Gait Training,Manual Therapy,Neuro Re-education, Therapeutic Activities,Therapeutic Exercise PT Services Indicated Yes Treatment Frequency and 2x/week for 8 visits Duration These treatments will address the objective and functional deficits as defined above. The patient will be advanced safely and appropriately in order for the patient to progress towards his/her prior level of function. Additional exercises will be introduced and as well as a comprehensive home exercise program upon discharge, if needed, ?to ensure carryover of functional gains achieved in the clinic. This treatment plan has been reviewed and agreement upon by the patient.
--- NOTE | 2024-05-28 14:35 | PCPTNOTE ---
Canceled ill. [place]
--- NOTE | 2024-06-06 12:35 | PCPTNOTE ---
Canceled, ill. [facility]
--- NOTE | 2024-06-13 13:01 | PCPTNOTE ---
Pt called to cancel his appointment this afternoon due to illness
--- NOTE | 2024-09-05 08:54 | PTOPDC ---
Assessment and note entered by Jaylan Zheng, PT Evaluation Information Assessment Status Discharge - Pt Not Present ICD-10 Condition Codes (PT) Weakness R53.1 Onset Chronic Subjective Information Reports that he has noted progress neuropathy over the past couple of years he has not been nearly as active as he should. Feels that he has poorly managed both his activity and diet. He is a smoker . Overall feels that her has lost a lot of strength and endurance to gain and wants to increase his activity and blood flow. He would like to increase his activity and be guided in how to do it. He has done therapy in the past and wants to pick it back up to get motivated. Feels he has both upper and lower body weakness that he wants to work on. Reports numbness for the knees down. Assessment PT Clinical Summary Patient was present for 4 visits of therapy prior to 3 consecutive cancellations. No report from patient for intended follow up. Will be discharged at this time. Plan of Care PT Services Indicated Yes
== END 2024-08-07 23:59 | disposition home or self-care (01) ==
LOC: ANHPT 14:00
PROVIDERS: PCP Nurse Practitioner Family; Visit Provider Nurse Practitioner Family
DX: E11.40 Type 2 diabetes mellitus with diabetic neuropathy, unspecified (principal); R53.1 Weakness
CPT/HCPCS: 97110; 97116; 97161; 97530

== ENCOUNTER 2024-08-28 10:17 | Outpatient (CLI) | payer OTHER, SELFPAY | END 2024-08-28 10:18 | disposition home or self-care (01) | LOC: ANHBWCAUD 10:18 | PROVIDERS: PCP Nurse Practitioner Family; Visit Provider Otolaryngology | DX: H61.23 Impacted cerumen, bilateral (principal); J30.2 Other seasonal allergic rhinitis; H93.19 Tinnitus, unspecified ear; H90.3 Sensorineural hearing loss, bilateral | CPT/HCPCS: 92557; 92567 ==

== ENCOUNTER 2024-09-04 14:11 | Outpatient (CLI) | payer OTHER, SELFPAY ==
[2024-09-04 15:10] LABS: Total Protein Urine Random > 200 mg/dL; Ur Ttl Prot Creatinine Ratio 2.16 mg/mg (0-0.20)
[2024-09-04 15:16] LABS: Albumin Level 4.2 g/dL (3.5-5.1); Anion Gap 7 mmol/L (4-12); Blood Urea Nitrogen 21 mg/dL (9-20); Calcium 9.4 mg/dL (8.4-10.2); Carbon Dioxide 26 mmol/L (22-30); Chloride 106 mmol/L (98-107); Estimated Glomerular Filt Rate > 60; Glucose 266 mg/dL (65-110); Osmolality Calculated 300 mOsm/kg (285-295); Potassium 4.7 mmol/L (3.4-5.0); Sodium 139 mmol/L (137-145)
== END 2024-09-04 14:12 | disposition home or self-care (01) ==
LOC: CHSLAB 14:13
PROVIDERS: PCP Nurse Practitioner Family; Visit Provider Internal Medicine Nephrology
DX: R80.9 Proteinuria, unspecified (principal); E11.29 Type 2 diabetes mellitus with other diabetic kidney complication
CPT/HCPCS: 36415; 80069; 82570; 84156

== ENCOUNTER 2024-10-30 11:46 | Outpatient (CLI) | payer OTHER, SELFPAY ==
[2024-10-30 12:15] LABS: Hematocrit 47.6 % (40.0-54.0); Hemoglobin 15.5 g/dL (14.0-18.0); Immature Granulocyte Percent A 0.6 % (0.0-0.0); Lymphocytes Absolute Auto 2.44 K/mm3 (1.10-4.50); Mean Corpuscular HGB Conc 32.6 g/dL (32-36); Mean Corpuscular Hemoglobin 28.4 pg (27.0-31.0); Mean Corpuscular Volume 87.3 fL (78.0-102.0); Nucleated Red Blood Cells Absolute Auto 0.00 K/mm3 (0.00-0.00); Nucleated Red Blood Cells Perc 0.0 % (0-0.0); Platelet Count Result 266 K/mm3 (150-420); Red Blood Count 5.45 M/mm3 (4.70-6.10); White Blood Count 8.8 K/mm3 (4.8-10.8)
[2024-10-30 12:45] LABS: Hemoglobin A1C 8.8 % (<5.7)
[2024-10-30 13:00] LABS: Cholesterol 243 mg/dL (0-200); HDL Direct 42 mg/dL; Triglycerides 225 mg/dL (<150)
[2024-10-30 13:30] LABS: Thyroid Stimulating Hormone Reflex 1.710 uIU/mL (0.465-4.68)
[2024-10-30 13:55] LABS: MALB Creatinine Ratio 202.3 mg/g (0-30)
[2024-11-05 13:28] LABS: Alanine Aminotransferase 17 U/L (6-50); Albumin Level 4.2 g/dL (3.5-5.1); Alkaline Phosphatase 78 U/L (38-126); Aspartate Amino Transferase 22 U/L (17-59); Bilirubin,Total 0.7 mg/dL (0.2-1.3); Total Protein 6.7 g/dL (6.3-8.2)
== END 2024-10-30 11:47 | disposition home or self-care (01) ==
LOC: CHSLAB 11:48
PROVIDERS: PCP Nurse Practitioner Family; Visit Provider Nurse Practitioner Family
DX: Z00.00 Encounter for general adult medical examination without abnormal findings (principal); E11.9 Type 2 diabetes mellitus without complications; R53.82 Chronic fatigue, unspecified
CPT/HCPCS: 36415; 80061; 80076; 82043; 82306; 83036; 84443; 85025

== ENCOUNTER 2025-02-21 09:20 | Outpatient (CLI) | payer OTHER, SELFPAY ==
--- OUTSIDE RECORDS SUMMARY | 2025-02-21 09:34 | XMS_ITS | Clinical Summary ---
Author Organization [facility] Address [address] [place] [address] Care Team Providers Care Senior Ui Designer Name Role Phone Herson Almazan DO Primary Care Provider Allergies Active Allergy Reactions Criticality Noted Date Comments Tetracycline Unknown High Medications ketorolac (ACULAR) 0.5 % ophthalmic solution Administer 1 drop into both eyes 2 (two) times a day 5 Active prednisoLONE acetate (PRED FORTE) 1 % ophthalmic suspension Administer 1 drop into both eyes 2 (two) times a day 5 Active metFORMIN XR (GLUCOPHAGE XR) 500 mg 24 hr tablet Active atorvastatin (LIPITOR) 40 mg tablet Take 1 tablet (40 mg total) by mouth daily 5 Active lisinopriL (PRINIVIL,ZESTR IL) 2.5 mg tablet Take 1 tablet (2.5 mg total) by mouth daily 5 Active Farxiga 10 mg tablet Take 1 tablet (10 mg total) by mouth every morning 5 Active busPIRone (BUSPAR) 7.5 mg tablet Take 1 tablet (7.5 mg total) by mouth 2 (two) times a day 5 Active tadalafiL (Cialis) 20 mg tablet TAKE 1 TABLET DAILY 1 HOUR BEFORE NEEDED 2 Active Active Problems Problem Noted Date Diagnosed Date 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 We discussed smoking avoidance, BP control, and monitoring vision at home with AG. Encouraged them to call back with any changes. Reviewed BG control. Orders: OCT, Retina - OU - Both Eyes Assessment & Plan (11/28/2024 11:21 AM CDT): Discussed with patient the classification of Diabetic Retinopathy and guarded prognosis and progressive nature of the disease. Discussed therapeutic options including observation, laser, surgery and injections of medication into the eye. Risks, benefits and alternatives to therapy discussed with the patient include but not limited to infection, bleeding, damage to the eye and its structures, loss of vision, deformity,double vision, retinal detachment, retinal tears, elevated ocular pressure, pain, systemic complications such as heart attack or stroke,need for other types of eye medications or surgeries, and the potential for numerous repeated treatments with one or a combination of approaches. The FDA status of anti-VEGF medications were reviewed. The patient understood and wished to proceed with Avastin to the RIGHT eye. AMSLER grid monitoring, blood pressure/sugar control and smoking avoidance. Patient is to follow up with us immediately if new changes on AMSLER, flashing lights, floaters, new central or peripheral scotoma, or new central distortion, pain or sudden vision loss occurs. Orders: Fluorescein Angiography, OU Transit OD OCT, Retina - OU - Both Eyes Intravitreal Injection, Pharmacologic Agent - OD - Right Eye bevacizumab syringe ophthalmic injection 1.25 mg Microscopic hematuria 09/15/2015 Urinary tract infection 11/09/2011 Malignant neoplasm of urinary bladder 12/30/2010 Overview (06/15/2017): Description: invasive high grade TCC with CIS Blood in urine 12/10/2010 Calculus of kidney 12/10/2010 Encounters Date Type Department Care Team Description 01/13/2025 11:00 AM RADIOACTIVE WASTE DISPOSAL DISPATCHER Office Visit [facility]hthalmology [address] [place] [address] Health [address]th [place] [address] Javier Sarabia MD Type 2 diabetes mellitus with 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, without long-term current use of insulin (HCC) (Primary Dx) 01/09/2025 Telephone [facility] [address] [facility] [address] [address] Javier Sarabia MD No Show (Same day cxl - Established ) 11/29/2024 Telephone [facility]hthal[facility] [address] [place] [address] Javier Sarabia MD Medical Records Request 11/28/2024 9:00 AM CDT Office Visit [facility] [address] [address] Javier Sarabia MD Type 2 diabetes mellitus with 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, without long-term current use of insulin (HCC) (Primary Dx) 11/22/2024 Telephone [facility]hthalmology [address] [place] [phone] Javier Sarabia MD Pre Cert (2024 & AVASTIN APPROVED - ROSE ) from Last 3 Months Surgical History Surgery Date Site/Laterality Comments CATARACT EXTRACTION W/ INTRA OCULAR LENS IMPLANT 03/06/2024 - 03/05/2025 Bilateral Medical History Medical History Date Comments Personal history of other en docrine, nutritional and metabolic disease History of diabetes mellitus - (Added by TW Conv) Social History Tobacco Use Types Packs/Day Years Used Date Smoking Tobacco: Every Day Cigarettes Sex and Gender Information Value Date Recorded Sex Assigned at Not on file Legal Sex Male 7:02 AM RADIOACTIVE WASTE DISPOSAL DISPATCHER Gender Identity Not on file Sexual Orientation Not on file Plan of Treatment Health Maintenance Due Date Last Done Comments Albumin Creatinine Ratio, Urine 1964 Colon Cancer Screening-Colonoscopy 1964 Depression Screening 1964 Hemoglobin A1C 1964 Hepatitis C Screening 1964 Prostate Cancer Screening-PSA 1964 eGFR 1964 Foot Exam 1964 Lipid Panel 1964 Hepatitis B Screening 1982 Regular Well Visit/Exam 18-64 1982 Pneumococcal vaccine <65 (1 of 2 - PCV) 11/22/1983 Zoster Vaccine (1 of 2) 2014 DTaP/Tdap/Td Vaccine (2 - Td or Tdap) 09/11/202411/2014 Influenza Vaccine (#1) 2024 Dilated Eye Exam 01/13/2026 01/13/2025, 11/28/2024 Procedures Procedure Name Priority Date/Time Associated Diagnosis Comments OCT, RETINA - OU - BOTH EYES Routine 01/13/2025 11:54 AM RADIOACTIVE WASTE DISPOSAL DISPATCHER Type 2 diabetes mellitus with 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, without long-term current use of insulin ([facility]) INTRAVITREAL INJECTION, PHARMACOLOGIC AGENT - OD - RIGHT EYE Routine 11/28/2024 11:21 AM CDT Type 2 diabetes mellitus with 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, without long-term current use of insulin ([facility]) OCT, RETINA - OU - BOTH EYES Routine 11/28/2024 10:49 AM CDT Type 2 diabetes mellitus with 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, without long-term current use of insulin ([facility]) FLUORESCEIN ANGIOGRAPHY, OU TRANSIT OD - OU - BOTH EYES Routine 11/28/2024 10:48 AM CDT Type 2 diabetes mellitus with 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 Scan locations included subfoveal. Progression has improved. Findings include normal observations. Left Eye Quality was good. Scan locations included subfoveal. Progression has improved. Findings include normal observations, intraretinal fluid. us Javier Sarabia MD OPHTH TOMOGRAPHY Final Res ult * Intravitreal Injection, Pharmacologic Agent - OD - Right Eye (11/28/2024 11:21 AM CDT) Anatomical Region Laterality Modality Head Other Narrative 11/28/2024 11:21 AM CDT Time Out Informed consent was obtained after all risks, benefits and alternatives were explained to the patient. The patient understood, agreed and wished to proceed. Timeout was completed verifying the patient, procedure, laterality and allergies. Anesthesia Subconjunctival anesthesia was used, Topical anesthesia was used. Anesthetic medications included Lidocaine 2%, Proparacaine 0.5%. The anesthesia lot number is [id number]. The expiration date is 01/03/26. The manufacture of the medication is [employer]. Intravitreal Injection, Pharmacologic Agent Preparation included 5% betadine to ocular surface, 10% betadine to eyelids. A 30 gauge needle was used. Pharmaceutical Medication: 1.25 mg bevacizumab syringe 2.25 mg/0.09 mL Route: intravitreal, Site: Right Eye [facility]: 59778-226-88, Lot: [id number], Expiration date: 03/23/2025 Medication Billing The medication administered today will be billed to the patient or insurance. The medication administered today was not a sample. The patient will not be utlizing the patient assistance program. Post-op Post injection exam found visual acuity is at least hand motion. the patient tolerated the procedure. there were no complications during today's treatment. The patient received written and verbal post procedure care education. The attending physician was present for the entire procedure. Notes Pt signed consent URIAH OD 11/28/24 Javier Sarabia MD OPH CLINIC PROCEDURES Fi nal Result * OCT, Retina - OU - Both Eyes (11/28/2024 10:49 AM CDT) Anatomical Region Laterality Modality Head Optical Coherenc e Tomography Narrative 11/28/2024 10:49 AM CDT Right Eye Quality was good. Scan locations included subfoveal. Progression has no prior data. Findings include intraretinal fluid. Left Eye Quality was good. Scan locations included subfoveal. Progression has no prior data. Findings include intraretinal fluid. Javier Sarabia MD OPHTH TOMOGRAPHY Final Res ult * Fluorescein Angiography, OU Transit OD (11/28/2024 10:48 AM CDT) Anatomical Region Laterality Modality Head Fundus Photograp hy Narrative 11/28/2024 10:48 AM CDT Time Out Informed consent was obtained after all risks, benefits and alternatives were explained to the patient. The patient understood, agreed and wished to proceed. Timeout was completed verifying the patient, procedure, laterality and allergies. Right Eye Quality was good. Progression has no prior data. Left Eye Quality was good. Progression has no prior data. FA - Lot Number and Expiration Date [id number] 12/03/2026. Notes Consented patient for FA OU - KK Transit OD Numerous areas of Non-perfusion, leakage OU, no NV OU us Javier Sarabia MD OPHTH PHOTOGRAPHY Final Re sult from Last 3 Months Insurance [employer] [facility] Care Teams Senior Ui Designer Relationship Specialty Start Date End Date Herson Almazan DO [address], [place] [phone] PCP - General Family Medicine 11/14/24
[2025-02-21] MEDS: COSYNTROPIN 0.25 MG/ML VIAL IM (09:50)
[2025-02-21 10:11] LABS: Hematocrit 44.8 % (42.0-52.0); Hemoglobin 14.4 g/dL (14.0-18.0); Mean Corpuscular HGB Conc 32.1 g/dl (32-36); Mean Corpuscular Hemoglobin 29.4 pg (26-34); Mean Corpuscular Volume 91.4 fl (80-100); Platelet Count Result 254 k/mm3 (150-375); Red Blood Count 4.90 M/mm3 (4.6-6.20); White Blood Count 10.2 K/mm3 (4.5-10.0)
[2025-02-21 10:29] LABS: Hemoglobin A1C 7.0 % (<5.7)
[2025-02-21 10:30] LABS: Cholesterol 111 mg/dL (0-200); HDL Direct 35 mg/dL; Triglycerides 135 mg/dL (<150)
[2025-02-21 11:14] LABS: Vitamin B12 469.0 pg/mL (239-931)
[2025-02-21 11:58] LABS: Cortisol 60 Minute 44.90 ug/dL
== END 2025-02-21 09:21 | disposition home or self-care (01) ==
PROVIDERS: PCP Nurse Practitioner Family; Referring Provider Nurse Practitioner Family; Visit Provider Internal Medicine
DX: E78.5 Hyperlipidemia, unspecified (principal); E66.3 Overweight; E55.9 Vitamin D deficiency, unspecified; E11.40 Type 2 diabetes mellitus with diabetic neuropathy, unspecified; E11.29 Type 2 diabetes mellitus with other diabetic kidney complication; E11.3313 Type 2 diabetes mellitus with moderate nonproliferative diabetic retinopathy with macular edema, bilateral; Z71.3 Dietary counseling and surveillance
CPT/HCPCS: 36415; 80061; 82306; 82533; 82607; 83036; 85027; 96372